=== PATIENT | female | born 2000 | race Two or more races ===

== ENCOUNTER 2023-05-27 16:56 | Emergency (ER) | payer OTHER ==
[2023-05-27 17:07] VITALS: BP 110/71
[2023-05-27 17:15] VITALS: BP 99/66
[2023-05-27 17:52] LABS: BASO% 0.2 % (0-3); EOS% 1.4 % (0-8); HEMATOCRIT 42.9 % (37.0-47.0); HEMOGLOBIN 13.8 g/dl (12.0-16.0); IMMATURE GRANULOCYTES 0.1 % (0.0-5.0); LYMPH% 33.7 % (15-41); MEAN CORPUSCULAR HGB 28.6 pG CALC (26.0-32.0); MEAN CORPUSCULAR HGB CONC 32.2 g/dL CAL (32.0-36.0); MONO% 8.4 % (2-13); NEUT# 4.66 thou/uL (2.00-7.15); NEUT% 56.2 % (42-76); RED BLOOD COUNT 4.82 mill/uL (4.20-5.60); RED CELL DISTRI WIDTH 11.7 % (11.5-15.5)
[2023-05-27 17:55] LABS: URINE BILIRUBIN - DIPSTICK Negative (NEGATIVE); URINE BLOOD DIPSTICK Moderate (NEGATIVE); URINE GLUCOSE - DIPSTICK Negative (NEGATIVE); URINE KETONE Negative (NEGATIVE); URINE LEUK ESTERASE Negative (NEGATIVE); URINE NITRITE - DIPSTICK Negative (Negative); URINE PROTEIN - DIPSTICK Negative (NEG-TRACE); URINE UROBILINOGEN - DIPSTICK 0.2 E.U./dL (0.2)
[2023-05-27 17:56] LABS: URINE COLOR Yellow; URINE EPITHELIAL CELLS FEW EPI/hpf (0-FEW)
[2023-05-27 18:03] LABS: ALKALINE PHOSPHATASE 69 u/l (38-126); ANION GAP 14 (6-22 (CALC)); BILIRUBIN, TOTAL 1.1 mg/dL (0.02-1.3); BUN 15 mg/dL (7-17); BUN/CREATININE RATIO 22 (12-20 (CALC)); CARBON DIOXIDE 28 mmol/l (22-30); CHLORIDE 103 mmol/l (95-108); CREATININE 0.7 mg/dL (0.5-1.0); GFR FOR AFR.AMER. > 60 ML/MIN (>=60 (CALC)); GFR OTHER RACES > 60 ML/MIN (>=60 (CALC)); LIPASE 174 u/l (23-300); POTASSIUM 3.5 mmol/l (3.5-5.1); SGOT/AST 26 u/l (14-36); SODIUM 141 mmol/l (137-146); TOTAL PROTEIN 9.2 g/dL (6.3-8.2)
[2023-05-27 19:20] VITALS: BP 99/64
[2023-05-27 20:00] VITALS: BP 112/71
[2023-05-27] MEDS ORDERED: MIRALAX17 GM PO (20:06)
[2023-05-27 20:15] VITALS: BP 112/71
== END 2023-05-27 20:23 | disposition home or self-care (01) | DRG 392 ==
LOC: ED 16:56
PROVIDERS: Family Medicine
DX: K59.00 Constipation, unspecified (principal); Z20.822 Contact with and (suspected) exposure to COVID-19
CPT/HCPCS: Q9967

== ENCOUNTER 2023-06-24 13:43 | Emergency (ER) | payer OTHER ==
[~2023-06-24] VITALS: Ht 160 cm; Wt 52.2 kg
[~2023-06-24 13:43] MED LIST: MIRALAX17 GM PO
[2023-06-24 14:01] VITALS: BP 99/67
[2023-06-24 14:18] LABS: URINE BILIRUBIN - DIPSTICK Negative (NEGATIVE); URINE BLOOD DIPSTICK Small (NEGATIVE); URINE GLUCOSE - DIPSTICK Negative (NEGATIVE); URINE KETONE Trace mg/dL (NEGATIVE); URINE LEUK ESTERASE Negative (NEGATIVE); URINE NITRITE - DIPSTICK Negative (Negative); URINE PROTEIN - DIPSTICK Negative (NEG-TRACE); URINE SPECIFIC GRAVITY 1.025; URINE UROBILINOGEN - DIPSTICK 0.2 E.U./dL (0.2)
[2023-06-24 14:29] LABS: URINE COLOR Yellow
[2023-06-24 14:30] VITALS: BP 93/53
[2023-06-24 14:34] LABS: URINE SQUAMOUS EPITHELIAL CELL FEW EPI/hpf (0-FEW); URINE WBC 0-2 WBC/hpf (0-5)
[2023-06-24 14:35] LABS: URINE BACTERIA MODERATE hpf; URINE MUCUS FEW hpf (NONE-FEW)
[2023-06-24] MEDS ORDERED: KEFLEX500 MG PO (14:55)
[2023-06-24] MEDS ORDERED: PEPCID20 MG PO (14:56)
[2023-06-24 15:00] VITALS: BP 97/59
== END 2023-06-24 15:05 | disposition home or self-care (01) | DRG 690 ==
LOC: ED 13:43
PROVIDERS: Nurse Practitioner
DX: N39.0 Urinary tract infection, site not specified (principal)

== ENCOUNTER 2023-11-06 22:39 | Emergency (ER) | payer OTHER ==
[~2023-11-06] VITALS: Ht 160 cm; Wt 53.0 kg
[~2023-11-06 22:39] MED LIST changes: +KEFLEX500 MG PO; +PEPCID20 MG PO
[2023-11-06] MEDS ORDERED: KEFLEX500 MG PO (23:52)
[2023-11-06 23:56] VITALS: BP 105/61
== END 2023-11-07 00:01 | disposition home or self-care (01) | DRG 125 ==
LOC: ED 22:39
DX: H00.014 Hordeolum externum left upper eyelid (principal)